=== PATIENT | male | born 1970 | race Two or more races ===

== ENCOUNTER 2018-10-29 00:50 | Emergency (ER) | payer MEDICARE, OTHER ==
[~2018-10-29] VITALS: Ht 177.8 cm; Wt 84.8 kg
[2018-10-29 00:55] VITALS: BP 137/89
[2018-10-29] MEDS ORDERED: ACETAMINOPHEN ES 500 MG TABLET ONE (02:46)
[2018-10-29] MEDS ORDERED: ACETAMINOPHEN ES 500 MG TABLET PO ONE (03:00)
--- NOTE | 2018-10-29 03:00 | NUR ---
Patient discharged to home in stable condition. Written and verbal after care instructions given. Patient verbalizes understanding of instruction. PT REFUSED HOMELESS INTERMEDIATE REFERAL PAPERWORK
== END 2018-10-29 03:01 | disposition home or self-care (01) ==
LOC: ER 00:51
DX: G40.909 Epilepsy, unspecified, not intractable, without status epilepticus (principal); G89.29 Other chronic pain; M54.5 Low back pain; F19.10 Other psychoactive substance abuse, uncomplicated; F10.10 Alcohol abuse, uncomplicated; F41.9 Anxiety disorder, unspecified; Y90.9 Presence of alcohol in blood, level not specified; Z59.0 Homelessness
CPT/HCPCS: 99283; A4606

== ENCOUNTER 2020-06-10 01:37 | Emergency (ER) | payer MEDICARE, SELFPAY ==
[~2020-06-10] VITALS: Ht 177.8 cm; Wt 69.4 kg
--- NOTE | 2020-06-10 01:40 | NUR ---
PT BIBEMS C/O SUICIDAL IDEATION WITHOUT A PLAN. DENIES HI. PT PLACED IN A GOWN, ON MONITOR, AND PULSE OX. PT BELONINGS PLACED IN LOCKER. VSS. NO ACUTE DISTRESS NOTED.
[2020-06-10] MEDS ORDERED: OLANZAPINE 5 MG TABLET ONE (02:11)
[2020-06-10 02:26] LABS: BASOPHILS # (AUTO) 0.1 /CMM (0.0-0.2); BASOPHILS % (AUTO) 1.4 % (0.0-2.0); EOSINOPHILS % (AUTO) 2.4 % (0.0-6.0); HEMATOCRIT 40 % (39-51); HEMOGLOBIN 12.5 g/dL (13.5-17.5); LYMPHOCYTES # (AUTO) 2.1 /CMM (0.8-4.8); LYMPHOCYTES % (AUTO) 32.2 % (20.0-44.0); MEAN CORPUSCULAR HGB CONC 32 g/dl (31.0-36.0); MEAN CORPUSCULAR VOLUME 79 fL (80-96); MONOCYTES # (AUTO) 0.7 /CMM (0.1-1.30); MONOCYTES % (AUTO) 10.7 % (2.0-12.0); NEUTROPHILS # (AUTO) 3.5 /CMM (1.8-8.9); NEUTROPHILS % (AUTO) 53.3 % (43.0-81.0); PLATELET COUNT (AUTO) 345 /CMM (150-450); RED BLOOD CELL COUNT(AUTO) 4.99 MIL/uL (4.5-6.0); WHITE BLOOD COUNT (AUTO) 6.6 K/uL (4.3-11.0)
[2020-06-10] MEDS ORDERED: OLANZAPINE 5 MG TABLET PO ONE (02:30)
[2020-06-10 02:35] LABS: CALCIUM, SERUM 8.2 mg/dL (8.5-10.1); CARBON DIOXIDE 29 mmol/L (21-32); CHLORIDE 104 mmol/L (98-107); GLUCOSE 103 mg/dL (74-106); POTASSIUM 3.5 mmol/L (3.5-5.1); SODIUM SERUM 142 mmol/L (136-145); UREA NITROGEN, BLOOD 22 mg/dL (7-18)
[2020-06-10 02:37] LABS: ALANINE AMINOTRANSFERASE 17 U/L (12-78); ALBUMIN 3.2 g/dL (3.4-5.0); ALCOHOL, BLOOD 16 mg/dL (0-0); ALKALINE PHOSPHATASE 75 U/L (46-116); ASPARTATE AMINOTRANSFERASE 14 U/L (15-37); BILIRUBIN,TOTAL 0.2 mg/dL (0.2-1.0); TOTAL PROTEIN, SERUM 6.7 g/dL (6.4-8.2)
--- NOTE | 2020-06-10 02:39 | NUR ---
URINE COLLECTED AND SENT TO LAB.
[2020-06-10 02:40] LABS: ACETAMINOPHEN < 2 ug/ml (10-30)
[2020-06-10 03:37] LABS: APPEARANCE,URINE CLEAR (CLEAR); BILIRUBIN,URINE NEGATIVE (NEGATIVE); BLOOD, URINE NEGATIVE Ery/uL (NEGATIVE); COLOR,URINE YELLOW (YELLOW); KETONES,URINE NEGATIVE (NEGATIVE); LEUKOCYTE ESTERASE ,URINE NEGATIVE (NEGATIVE); NITRITE, URINE NEGATIVE (NEGATIVE); PH,URINE 6.5 (5.0-8.0); PROTEIN,URINE NEGATIVE (NEGATIVE); UGLUCOSE NEGATIVE (NEGATIVE)
[2020-06-10 03:52] LABS: BACTERIA,URINE None seen /HPF (None Seen); RBC,URINE 0-2 /HPF (0-2); SQUAMOUS EPITHELIAL CELL,UR Few /HPF (None Seen); WBC,URINE 0-2 /HPF (0-3)
--- NOTE | 2020-06-10 04:16 | NUR ---
CLINICAL FAXED TO [facility] FOR VOLUNTARY PSYCH ADMISSION.
--- NOTE | 2020-06-10 05:11 | NUR ---
received a call from Priya at [facility] w/ acceptance info: pt got accepted at [facility] under DR Benson # for report: [phone] , per Priya to give report and send pt after 1000
--- NOTE | 2020-06-10 07:42 | NUR ---
agricultural extension educator pt in bed aox2 sitter at bedside, vs stable pt is suicidal does not have plan to harm himself or anyone else awaiting for dc to another facility.
--- NOTE | 2020-06-10 08:22 | NUR ---
PATIENT ACCEPTED AT [facility] UNDER DR. CABEZAS AND DR. VARGAS TO UNIT 2, PHONE # FOR REPORT: [phone] EXT. [phone]
--- NOTE | 2020-06-10 08:39 | NUR ---
CALLED [facility] FOR AMBUL[facility]SFER [facility]. ETA 1000.
--- NOTE | 2020-06-10 08:40 | NUR ---
REPORT GIVEN TO KRISTY LUIS FOR [facility] AT [facility]
--- NOTE | 2020-06-10 10:29 | NUR ---
PATIENT REFUSES TO GO TO [facility] AT THIS TIME, STS HE'S NO LONGER SUICIDAL. DR. PAL MADE AWARE AND ORDERED FOR A RESIDENT INSPECTOR CONSULT. JUS ROJAS RESIDENT INSPECTOR MADE AWARE.
--- NOTE | 2020-06-10 10:55 | NUR ---
SOCIAL WORKER PSYCHIATRIC AT BEDSIDE.
--- NOTE | 2020-06-10 10:56 | NUR ---
Patient a/ox4, breathing even and unlabored, no sob noted, denies SI/HI. Patient given written and verbal discharge instructions. Patient verbalizes understanding of instructions. Patient is ambulatory with steady gait. Refuses offer of senior care placement. Patient given list of available shelters in surrounding area.
[2020-06-10 11:00] VITALS: BP 112/81
--- NOTE | 2020-06-10 11:00 | NUR ---
Clinic Physician consulted requested by ED. The pt. is a 50-year old male who presents in [facility] ED with Suicidal ideation. Per MD note, patient states that he needs to be in a psychiatric voluntary hospital because he is suicidal and his plan is to hang himself. Upon this social workers consult, the pt. was sleeping but arousable by verbal cues. The pt. was calm and cooperative throughout interview. SW asked patient on 3 separate occasions throughout this interview if patient has SI. Patient denied SI all 3 times. SW discussed patients previous request for voluntary psychiatric placement. Patient declined voluntary psych treatment. Patient denies any mental health illness. Patient stated, I want to go to my friends house, Junior. Patient stated that his friend, Junior lives in [place] and he knows how to get there. SW offered pt. a bus pass and pt. declined. Pt. denies HI. No hallucinations or delusional thoughts reported or observed. Patient denies current drug use. Patient stated he is experiencing homelessness, and requested some additional clothing. SW provided the pt. with clothing, and offered the following resources: Substance Abuse resources provided included: [facility] Substance Abuse Self-Helpline ([facility]) ; [facility] [address] [facility]. [place] [address] ; [facility] [address] [facility] [address] ; [facility] [address] [facility]. [place] [id number] ; Year-round shelters : [place] [address] [place] [address] ; [facility] [address] [place] [address]; [facility] [address] [place] [address] [facility] [address] Hygiene: [facility]: [address] ; [facility] [address] [facility] ; [facility] [address] . Food Resources: [facility] [employer] at [facility]- [address] [place]; Meet Each Need wit Dignity ([facility]) [address] [place]; [facility] [employer] [address] [facility]; [facility] [address] [facility]. Mental Health resources provided: [facility] [address] [place] [address] ; [facility] [place], [facility]. [address] [facility] [address], [place] [address] ; [facility] [address] [facility] [place] [address] ; [facility] [address] . SW met with Dr. Serina Oro and ED RN Sommer and informed them of above assessment, and SS interventions provided. It was agreed that patient can be discharged with the resources provided. Patient signed the Homeless Patient Waiver form, which SW filed in patients chart. Patient was observed leaving the ED, however patient left the homeless resources packet behind.
== END 2020-06-10 11:00 | disposition home or self-care (01) ==
LOC: ER 01:37
DX: F32.9 Major depressive disorder, single episode, unspecified (principal); R45.851 Suicidal ideations; F15.10 Other stimulant abuse, uncomplicated; Z59.0 Homelessness; Z20.828 Contact with and (suspected) exposure to other viral communicable diseases; Z86.69 Personal history of other diseases of the nervous system and sense organs
CPT/HCPCS: 36415; 80048; 80076; 80299; 80307; 80320; 81001; 85025; 87426; 99285; C9803; 81000-TC; G0480